=== PATIENT | female | born 1985 | race Caucasian/White ===

== ENCOUNTER 2018-04-11 20:46 | Emergency (ER) | payer SELFPAY ==
[2018-04-11] MEDS ORDERED: ONDANSETRON ODT 4 MG TAB (6 TAB/ER DISP) PO PRN (21:50)
[2018-04-11] MEDS ORDERED: HYDROCODONE/ACETAMINOPHEN 5-325 MG (6 TAB/ER DISP) PO PRN (21:50)
[2018-04-11] MEDS ORDERED: PENICILLIN V POTASSIUM 500 MG TABLET PO ONE (21:50)
--- NOTE | 2018-04-11 21:54 | ER Document Report ---
HPI - HPI Patient complains to provider of: dental pain Pain Level: 5 Context: Patient is a 32-year-old female who comes to the emergency department for chief complaint of a broken tooth in her left lower jaw and pain that is worsening for the past week. She is taking both Tylenol and ibuprofen at home. She denies fever or chills, sore throat, neck pain, she does report worsening pain in her jaw with radiation toward her left ear. She has already established follow-up with the dentist. - EENT EENT: REPORTS: Ear Pain Past Medical History - General Information source: Patient - Social History Smoking Status: Never Smoker Drug Abuse: None Lives with: Family Family History: Reviewed & Not Pertinent Patient has suicidal ideation: No Patient has homicidal ideation: No - Medical History Medical History: Negative Renal/ Medical History: Denies: Hx Peritoneal Dialysis Surgical Hx: Negative - Immunizations Immunizations up to date: Yes Hx Diphtheria, Pertussis, Tetanus Vaccination: Yes Vertical Provider Document - CONSTITUTIONAL General Appearance: WD/WN, No Apparent Distress - INFECTION CONTROL TRAVEL OUTSIDE OF THE [place] IN LAST 30 DAYS: No - HEENT HEENT: Atraumatic, Normocephalic Mouth Diagram: 1 - Dental fracture with partial erosion of the tooth, mild surrounding tenderness and erythema of the gumline, no induration, fluctuance, or evidence of abscess, unremarkable oropharyngeal exam otherwise - NECK Neck: Normal Inspection - RESPIRATORY Respiratory: Breath Sounds Normal, No Respiratory Distress - CARDIOVASCULAR Cardiovascular: Regular Rate, Regular Rhythm - GI/ABDOMEN Gastrointestinal: Abdomen Soft, Abdomen Non-Tender - BACK Back: Normal Inspection - MUSCULOSKELETAL/EXTREMETIES Musculoskeletal/Extremeties: MAEW, FROM, Non-Tender - NEURO Level of Consciousness: Awake, Alert, Appropriate - DERM Integumentary: Warm, Dry, No Rash Course - Re-evaluation Re-evalutation: No evidence of Grant's angina, drainable abscess, or other abnormality this time. Appears to be simply infected tooth at this time. Discussed antibiotics , dental follow-up, and return precautions. Patient states understanding and agreement. - Vital Signs Vital signs: Temp Pulse Resp BP Pulse Ox 97.6 F 65 18 135/82 H 100 04/11/18 21:01 04/11/18 21:01 04/11/18 21:01 04/11/18 21:01 04/11/18 21:01 Discharge - Discharge Clinical Impression: Pain, dental, Dental infection Condition: Stable Disposition: HOME, SELF-CARE Additional Instructions: Your evaluation is consistent with dental infection. Take penicillin as prescribed. Follow-up with the dentist for additional evaluation and management (probably extraction) or this will continue to occur. Return if you worsen including swelling of the face. Prescriptions: Penicillin V Potassium [Penicillin Vk 500 mg Tablet] 500 mg PO BID #20 tablet
[2018-04-11 22:04] VITALS: BP 125/89
== END 2018-04-11 22:04 | disposition home or self-care (01) ==
LOC: ER 20:46
DX: K04.7 Periapical abscess without sinus (principal); K03.2 Erosion of teeth; K08.89 Other specified disorders of teeth and supporting structures; R68.84 Jaw pain
CPT/HCPCS: 99282